=== PATIENT | male | born 1985 | race Caucasian/White ===

== ENCOUNTER 2017-04-27 19:50 | Emergency (ER) | payer BC ==
[~2017-04-27 19:50] MED LIST: CLARITIN10 MG PO; INDOCIN SR75 MG PO; NO MEDICATIONS
== END 2017-04-27 23:37 | disposition home or self-care (01) ==
LOC: CFTX 19:50 → CED 19:50 → CFTX 23:28
DX: S39.011A Strain of muscle, fascia and tendon of abdomen, initial encounter (principal); F17.210 Nicotine dependence, cigarettes, uncomplicated; X50.0XXA Overexertion from strenuous movement or load, initial encounter; Y93.89 Activity, other specified
CPT/HCPCS: 99283